=== PATIENT | male | born 2000 | race Caucasian/White ===

== ENCOUNTER → 2021-03-17 08:23 | Outpatient (CLI) | payer BC, SELFPAY ==
--- NOTE | ~2021-03-17 | MR_ITS ---
EXAMINATION: MR knee RT wo con DATE: 03/17/2021 09:17 INDICATION: Lateral right knee pain and weakness. TECHNIQUE: Magnetic resonance imaging (MRI) of the right knee was performed without intravenous contr ast. Sequences included coronal PD-weighted FSE, coronal PD-weighted FS FSE, sagittal T2-weighted FS E, sagittal PD-weighted FS FSE and axial PD weighted fat saturated FSE. COMPARISON: None. FINDINGS: Medial compartment: Medial meniscus is normal. Articular cartilage is normal. Lateral compartment: Lateral meniscus is normal. Articular cartilage is normal. Patellofemoral compartment: Articular cartilage is normal. Ligaments and tendons: Complete tear of the anterior cruciate ligament. There is a cyclops lesion with anterior flexion of s ome of the torn distal portion of the ligament. Posterior cruciate ligament is normal. The medial col lateral ligament and fibular collateral ligament complex are normal. The extensor mechanism is normal . The visualized medial and lateral hamstring tendons as well as the iliotibial band are normal. Fluid: Small right knee joint effusion. There is a suprapatellar plical band as well as a medial plical band which extends to but does not . Across the medial rim of the medial trochlea. No loose osteochondral bodies identified. Osseous/other: Small linear low signal intensity subarticular impaction fracture line with surrounding marrow edema at the lateral sulcus of the lateral femoral condyle. Bone marrow edema without evident fracture line along the posterior aspect of the lateral tibial plateau consistent with a corresponding bone contus ion. Additional bone contusion with marrow edema but without evident fracture line at the medial rim of the anterior weightbearing medial femoral condyle. No pathologic marrow replacing process. IMPRESSION: 1. Injury pattern consistent with anterior tibial subluxation including complete tear of the anterior cruciate ligament, small subarticular impaction fracture at the lateral sulcus of the lateral femora l condyle and bone contusions at the medial femoral condyle and posterior lateral tibial plateau. 2. Likely reactive small right knee joint effusion. 3. Normal menisci and cartilage. Reviewed, dictated and finalized at location A. IMPRESSION: 1. Injury pattern consistent with anterior tibial subluxation including complet e tear of the anterior cruciate ligament, small subarticular impaction fracture at the lateral sulcus of the lateral femoral condyle and bone contusions at th e medial femoral condyle and posterior lateral tibial plateau. 2. Likely reactive small right knee joint effusion. 3. Normal menisci and cartilage.
== END ==
DX: M25.561 Pain in right knee (principal)
CPT/HCPCS: 73721